=== PATIENT | male | born 1985 | race Caucasian/White ===

== ENCOUNTER 2016-06-07 09:46 | Emergency (ER) | payer SELFPAY ==
[~2016-06-07] VITALS: Ht 175.3 cm; Wt 88.3 kg
[~2016-06-07 09:46] MED LIST: ABILIFY10 MG PO; BUSPAR7.5 MG PO; LEXAPRO5 MG PO; TRAZODONE HCL50 MG PO; VICODIN,LORT1 TABLET PO
[2016-06-07 10:24] VITALS: BP 119/76
[2016-06-07] MEDS ORDERED: TESSALON200 MG PO (11:54)
[2016-06-07] MEDS ORDERED: SERTRALINE HCL50 MG PO (11:57)
== END 2016-06-07 11:59 | disposition home or self-care (01) ==
LOC: EME 09:46
DX: J06.9 Acute upper respiratory infection, unspecified (principal)
CPT/HCPCS: 71020; 99281; 99283

== ENCOUNTER 2018-01-30 16:40 | Emergency (ER) | payer SELFPAY ==
[~2018-01-30] VITALS: Ht 177.8 cm; Wt 85.4 kg
[~2018-01-30 16:40] MED LIST changes: +SERTRALINE HCL50 MG PO; +TESSALON200 MG PO
[2018-01-30 17:03] VITALS: BP 115/71
[2018-01-30] MEDS ORDERED: LIDODERM 5% P1 PATCH TD (17:58)
[2018-01-30] MEDS ORDERED: NAPROXEN500 MG PO (17:58)
[2018-01-30] MEDS ORDERED: MEDROL DOSEPAK4 MG PO (17:58)
[2018-01-30] MEDS ORDERED: FLEXERIL10 MG PO (17:58)
== END 2018-01-30 18:00 | disposition home or self-care (01) ==
LOC: EME 16:40
DX: S39.012A Strain of muscle, fascia and tendon of lower back, initial encounter (principal); M54.16 Radiculopathy, lumbar region; X50.0XXA Overexertion from strenuous movement or load, initial encounter; F17.200 Nicotine dependence, unspecified, uncomplicated
CPT/HCPCS: 99281; 99283; J1885